=== PATIENT | female | born 1960 | race Caucasian/White ===

== ENCOUNTER 2023-06-05 22:34 | Emergency (ER) | payer MEDICARE, OTHER, SELFPAY ==
[2023-06-05 22:52] VITALS: BP 133/76; PULSE 73; RESP 18; TEMP 36.7; O2SAT 97; BMI 30.1
--- NOTE | 2023-06-05 23:00 | DI.RAD.S_ITS ---
PROCEDURE: XR CHEST 1V INDICATIONS: chest pain TECHNIQUE: One view of the chest was acquired. COMPARISON: None. FINDINGS: Surgical changes and devices: Left chest wall pacemaker. Lungs and pleura: Lungs are clear. No pleural effusions or pneumothorax. Mediastinum: Mediastinal contours appear normal. Heart size is normal. Bones and chest wall: No suspicious bony lesions. Overlying soft tissues appear unremarkable. IMPRESSION: No acute cardiopulmonary abnormality is seen. Dictated by: Pritesh Emery M.D. on 06/05/2023 at 23:49 Approved by: Pritesh Emery M.D. on 06/05/2023 at 23:49
[2023-06-05 23:11] VITALS: PULSE 77; RESP 33; O2SAT 94
[2023-06-05 23:15] VITALS: BP 141/79; PULSE 73; RESP 33; O2SAT 97
[2023-06-05 23:30] VITALS: PULSE 72; RESP 26; O2SAT 98
[2023-06-05 23:31] VITALS: BP 128/67; PULSE 72; RESP 24; O2SAT 98
[2023-06-05 23:31] LABS: Add Manual Diff / Slide Review NO; Basophils Absolute Auto 100 /uL (0-100); Eosinophils Absolute Auto 100 /uL (0-450); Eosinophils Percent Auto 1.4 % (2-4); Hematocrit 38.1 % (36-46); Hemoglobin 12.8 g/dL (12.0-16.0); Lymphocytes Absolute Auto 1600 /uL (1100-4500); Lymphocytes Percent Auto 20.3 % (25-40); Mean Corpuscular HGB Conc 33.7 % (30-36); Mean Corpuscular Hemoglobin 30.9 PG (26-34); Mean Corpuscular Volume 91.6 fL (80-100); Monocytes Absolute Auto 600 /uL (0-900); Monocytes Percent Auto 7.5 % (3-14); Neutrophils Absolute Auto 5600 /uL (1500-7000); Neutrophils Percent Auto 69.8 % (50-75); Platelet Count 271 X10^3/uL (150-400); Red Blood Cell Count 4.16 X10^6/uL (4.0-5.2); Red Cell Distribution Width 13.1 % (11.6-14.8)
[2023-06-05 23:45] LABS: Blood Urea Nitrogen 15 mg/dL (7-17); Creatine Kinase 59 U/L (30-135); HEMOLYSIS < 15 (0-50); Potassium 3.4 mmol/L (3.4-5.1); Sodium 137 mmol/L (137-145)
[2023-06-05 23:50] LABS: Alanine Aminotransferase 48 IU/L (<35); Albumin 4.1 g/dL (3.5-5.0); Albumin Globulin Ratio 1.4 (1.0-2.8); Alkaline Phosphatase 94 U/L (38-126); Aspartate Aminotransferase 52 IU/L (14-36); BUN Creatinine Ratio 20.8 (6-22); Calcium 8.9 mg/dL (8.4-10.2); Carbon Dioxide 24 mmol/L (22-32); Chloride 103 mmol/L (98-107); Estimated Glomerular Filt Rate > 60 mL/min (>60); Glucose 95 mg/dL (80-110); Lipase 181 U/L (23-300); Total Protein 7.1 g/dL (6.3-8.2)
[2023-06-06] VITALS: BP 135/83; PULSE 73; RESP 26; O2SAT 97
[2023-06-06 00:30] VITALS: BP 116/64; PULSE 71; RESP 15; O2SAT 96
[2023-06-06 00:40] LABS: Troponin I < 0.012 ng/mL (0.01-0.034)
--- NOTE | 2023-06-06 00:55 | ED_ITS ---
HPI - Chest Pain General Chief Complaint: Chest Pain Stated Complaint: lt arm pain shoots across chest, pacemaker Time Seen by Provider: 06/05/23 22:58 Source: patient Mode of arrival: Ambulatory History of Present Illness HPI narrative: Patient is a 62-year-old female. Has a history of coronary artery disease. Also has a pacemaker in place. Has had an ND in the past a couple years ago. Is taking all of her medications. Is here for evaluation of an episode that started earlier today that has been intermittent where she gets sharp pain that radiates across the front of her chest. She also states she is having some pain in her left shoulder that is reproducible with palpation and movement and some tingling down her left arm. Is also having pain down the left side of her chest in the left side of her abdomen that is also reproducible with palpation. No problems breathing. The time of my evaluation she was asymptomatic. Lower extremity swelling. Related Data Allergies Allergy/AdvReac Type Severity Reaction Status Date / Time codeine Allergy Anaphylaxis Verified 06/05/23 22:52 diphenhydramine AdvReac Hives Verified 06/05/23 22:52 [From Benadryl] erythromycin base AdvReac Jitters Verified 06/05/23 22:52 metoclopramide [From Reglan] AdvReac Vomiting Verified 06/05/23 22:52 oxycodone AdvReac jitters Verified 06/05/23 22:52 Review of Systems Review of Systems ROS Unobtainable: All systems reviewed & are unremarkable except as noted in HPI and below Patient History Social History Smoking Status: Never smoker Smoking Status: Never smoker Substance Use Type: marijuana Exam Initial Vital Signs Initial Vital Signs: Vital Signs Temperature 98.1 F 06/05/23 22:52 Pulse Rate 73 06/05/23 22:52 Respiratory Rate 18 06/05/23 22:52 Blood Pressure 133/76 06/05/23 22:52 Pulse Oximetry 97 06/05/23 22:52 Oxygen Delivery Method Room Air 06/05/23 22:52 Const General: cooperative, comfortable and No ill appearing HENMT Head: normal to inspection and normocephalic Chest Chest: No crepitus and No tenderness Resp Effort & Inspection: normal respiratory effort Auscultation: clear to auscultation bilaterally Cardio Rate: regular rate Rhythm: regular rhythm Skin General: no rashes or lesions noted Neuro General: patient alert, patient awake and moves all extremities Extrem General: normal to inspection and capillary refill normal Course Orders Ordered: ED Orders 06/05/23 22:57 EKG-12 Lead Stat 06/05/23 23:00 XR chest 1V Stat 06/05/23 23:13 Complete Blood Count AUTO DIFF Stat Comprehensive Metabolic Panel Stat Lipase Stat Troponin & CK Cardiac Panel Stat Discontinued Medications Cyclobenzaprine HCl (Cyclobenzaprine 10 Mg Tablet) 10 mg PO NOW ONE Stop: 06/06/23 00:57 Last Admin: 06/06/23 01:18 Dose: 10 mg Documented By: NATHANIEL Cyclobenzaprine HCl (Cyclobenzaprine 10 Mg Prepack) 1 bottle MISC DIRECTED ONE Stop: 06/06/23 00:57 Last Admin: 06/06/23 01:18 Dose: 1 bottle Documented By: NATHANIEL Vital Signs Vital signs: Vital Signs - 8 hr 06/05/23 22:52 06/05/23 23:11 06/05/23 23:15 Temperature 98.1 F Pulse Rate 73 77 73 Respiratory Rate 18 33 H 33 H Blood Pressure 133/76 Pulse Oximetry 97 94 97 Oxygen Delivery Method Room Air 06/05/23 23:15 06/05/23 23:30 06/05/23 23:31 Temperature Pulse Rate 72 72 Respiratory Rate 26 H 24 Blood Pressure 141/79 H Pulse Oximetry 98 98 Oxygen Delivery Method 06/05/23 23:31 06/06/23 00:00 06/06/23 00:00 Temperature Pulse Rate 73 Respiratory Rate 26 H Blood Pressure 128/67 135/83 Pulse Oximetry 97 Oxygen Delivery Method 06/06/23 00:30 06/06/23 00:30 06/06/23 01:00 Temperature Pulse Rate 71 70 Respiratory Rate 15 16 Blood Pressure 116/64 Pulse Oximetry 96 97 Oxygen Delivery Method 06/06/23 01:00 Temperature Pulse Rate Respiratory Rate Blood Pressure 129/71 Pulse Oximetry Oxygen Delivery Method MDM - Chest Pain Lab Data Attestation: I reviewed the patient's lab results. 06/05/23 23:13 06/05/23 23:13 Labs: Lab Results 06/05/23 Range/Units 23:13 WBC 8.0 (4.5-11.0) X10^3/uL RBC 4.16 (4.0-5.2) X10^6/uL Hgb 12.8 (12.0-16.0) g/dL Hct 38.1 (36-46) % MCV 91.6 (80-100) fL MCH 30.9 (26-34) PG MCHC 33.7 (30-36) % RDW 13.1 (11.6-14.8) % Plt Count 271 (150-400) X10^3/uL Neut % (Auto) 69.8 (50-75) % Lymph % (Auto) 20.3 L (25-40) % [place] % (Auto) 7.5 (3-14) % Eos % (Auto) 1.4 L (2-4) % Baso % (Auto) 1.0 (0-2) % Neut # (Auto) 5600 (2094-5855) /uL Lymph # (Auto) 1600 (6468-0007) /uL [place] # (Auto) 600 (0-900) /uL Eos # (Auto) 100 (0-450) /uL Baso # (Auto) 100 (0-100) /uL Sodium 137 (137-145) mmol/L Potassium 3.4 (3.4-5.1) mmol/L Chloride 103 (98-107) mmol/L Carbon Dioxide 24 (22-32) mmol/L BUN 15 (7-17) mg/dL Creatinine 0.72 (0.52-1.04) mg/dL Estimated GFR > 60 (>60) mL/min BUN/Creatinine Ratio 20.8 (6-22) Glucose 95 (80-110) mg/dL Calcium 8.9 (8.4-10.2) mg/dL Total Bilirubin 1.0 (0.2-1.3) mg/dL AST 52 H (14-36) IU/L ALT 48 H (<35) IU/L Alkaline Phosphatase 94 (38-126) U/L Total Creatine Kinase 59 (30-135) U/L Troponin I < 0.012 (0.01-0.034) ng/mL Total Protein 7.1 (6.3-8.2) g/dL Albumin 4.1 (3.5-5.0) g/dL Globulin 3.0 (1.7-4.1) g/dL Albumin/Globulin Ratio 1.4 (1.0-2.8) Lipase 181 (23-300) U/L Imaging Data Chest x-ray: Radiologist's Impression: PROCEDURE: XR CHEST 1V INDICATIONS: chest pain TECHNIQUE: One view of the chest was acquired. COMPARISON: None. FINDINGS: Surgical changes and devices: Left chest wall pacemaker. Lungs and pleura: Lungs are clear. No pleural effusions or pneumothorax. Mediastinum: Mediastinal contours appear normal. Heart size is normal. Bones and chest wall: No suspicious bony lesions. Overlying soft tissues appear unremarkable. IMPRESSION: No acute cardiopulmonary abnormality is seen ECG Data Attestation: I personally reviewed and interpreted this ECG as follows: Interpretation: Ventricularly paced Rate of 74 MDM Narrative Medical decision making narrative: Patient has reproducible discomfort to the left shoulder and the left trapezius muscle. Her workup here in the emergency department is unremarkable. She is ventricularly paced. Chest x-ray is unremarkable. I have low suspicion for PE has the discomfort that she has is reproducible with palpation and movement and she was not having shortness of breath. Low suspicion that this is ACS again because of the discomfort is reproducible with palpation and movement. Reassured patient. Troponin is negative. Discharge patient home with return precautions. She expressed understanding and agreement Discharge Plan Departure Patient Disposition: Home Clinical Impression: Left shoulder pain, Arm paresthesia, left Instructions: DI for Numbness/Tingling Activity Restrictions/Additional Instructions: Recommend that you continue to take all of your medications as directed. Continue with the conservative measures to include heat/ice and massage. Use the muscle relaxers as needed. Return to the emergency department for new or worsening symptoms. Stand Alone Forms: Patient Portal/API
[2023-06-06 01:00] VITALS: BP 129/71; PULSE 70; RESP 16; O2SAT 97
[2023-06-06] MEDS: CYCLOBENZAPRINE 10 MG TABLET PO (01:18)
[2023-06-06] MEDS: CYCLOBENZAPRINE 10 MG PREPACK 1 BOTTLE MISC (01:18)
== END 2023-06-06 01:35 | disposition home or self-care (01) ==
PROVIDERS: Emergency Provider Emergency Medicine
DX: R07.9 Chest pain, unspecified (principal); M25.512 Pain in left shoulder; R20.2 Paresthesia of skin; I25.2 Old myocardial infarction; Z95.0 Presence of cardiac pacemaker
CPT/HCPCS: 36415; 71045; 80053; 82550; 83690; 84484; 85025; 93005; 99284